=== PATIENT | female | born 1950 | race Caucasian/White ===

== ENCOUNTER 2017-11-29 09:24 | Inpatient (IN) | payer MEDICARE, OTHER ==
[~2017-11-29 09:24] MED LIST: EPHEDrine SULFATE 50 MG/5 ML SYG
[2017-11-29] MEDS ORDERED: ACETAMINOPHEN 325 MG TAB PO (11:30)
[2017-11-29] MEDS ORDERED: CEFAZOLIN 1 GM/50 ML (PMX) 50 ML IVPB (11:30)
[2017-11-29] MEDS ORDERED: BISACODYL 10 MG SUPP PR (11:30)
[2017-11-29] MEDS ORDERED: DIPHENHYDRAMINE 50 MG INJ IV ×2 (11:30→13:00)
[2017-11-29] MEDS ORDERED: AL HYDROX/MG HYDROX/SIMETH 30 ML CUP PO (11:30)
[2017-11-29] MEDS ORDERED: NALOXONE (0.4 MG/ML) INJ IV (11:30)
[2017-11-29] MEDS ORDERED: GELATIN SIZE 100 SPONGE (11:48)
[2017-11-29] MEDS ORDERED: ONDANSETRON 4 MG INJ (12:08)
[2017-11-29] MEDS ORDERED: METOCLOPRAMIDE 10 MG INJ (12:08)
[2017-11-29] MEDS ORDERED: ROCURONIUM 50 MG INJ ×2 (12:08→13:08)
[2017-11-29] MEDS ORDERED: PROPOFOL 20 ML (12:08)
[2017-11-29] MEDS ORDERED: MIDAZOLAM 1 MG/ML 2 ML INJ (12:08)
[2017-11-29] MEDS ORDERED: CEFAZOLIN 1 GM INJ (12:52)
[2017-11-29] MEDS ORDERED: ACETAMINOPHEN 1000MG/100ML IV 100 ML (12:52)
[2017-11-29] MEDS ORDERED: HYDROmorphONE (0.2 MG/ML) 10ML SYG IV ×3 (13:00)
[2017-11-29] MEDS ORDERED: MEPERIDINE 25 MG INJ IV (13:00)
[2017-11-29] MEDS ORDERED: HYDROmorphONE 2 MG/ML SYG (13:03)
[2017-11-29] MEDS ORDERED: THROMBIN 5000 UNIT VIAL (13:14)
[2017-11-29] MEDS: BUPIVACAINE 0.5%/EPI (SDV) 30 ML INJ (14:14)
[2017-11-29] MEDS: CA CHLORIDE 10% 10 ML SYRINGE (14:15)
[2017-11-29] MEDS: CEFAZOLIN 1 GM INJ (14:15)
[2017-11-29] MEDS: HEPARIN 1000 UNITS/ML 10 ML INJ (14:16)
[2017-11-29] MEDS: SURGIFOAM POWDER 1 GM KIT ×2 (14:16)
[2017-11-29] MEDS: THROMBIN 5000 UNIT VIAL (14:17)
[2017-11-29] MEDS: BUPIVACAINE 0.25% (MPF) 30 ML INJ (16:30)
[2017-11-29] MEDS: FENTAnyl 50 MCG/ML VIAL (16:31)
[2017-11-29] MEDS: HYDROmorphONE 0.2 MG/ML PCA IV (17:00)
[2017-11-29] MEDS: ONDANSETRON 4 MG INJ IV ×2 (17:24→20:26)
[2017-11-29] MEDS: CEPASTAT LOZENGE MT (18:27)
[2017-11-29] MEDS: CEFAZOLIN 1 GM/50 ML (PMX) 50 ML IVPB (18:27)
[2017-11-29] MEDS: D5W-0.45 NACL + KCL 20 MEQ 1,000 ML IV ×2 (18:27→19:54)
[2017-11-29] MEDS: ATORVASTATIN 10 MG TAB PO (20:13)
[2017-11-29] MEDS: DOCUSATE SODIUM 100 MG CAP PO (20:13)
[2017-11-29] MEDS: HYDROmorphONE 0.5 MG/0.5 ML SYG IV (23:39)
[2017-11-29] MEDS: CYCLOBENZAPRINE 10 MG TAB PO (23:51)
[2017-11-30] MEDS: ONDANSETRON 4 MG INJ IV (02:25)
[2017-11-30] MEDS: CEFAZOLIN 1 GM/50 ML (PMX) 50 ML IVPB ×2 (02:25→10:06)
[2017-11-30] MEDS: D5W-0.45 NACL + KCL 20 MEQ 1,000 ML IV ×2 (04:57→18:45)
[2017-11-30] MEDS: HYDROmorphONE 0.2 MG/ML PCA IV ×2 (05:01→16:30)
[2017-11-30] MEDS: PANTOPRAZOLE (EC) 40 MG TAB PO (05:03)
[2017-11-30 05:06] LABS: ADD MAN DIFF? NO
[2017-11-30 05:14] LABS: BASOPHILS % 0.2 % (0.0-2.0); EOSINOPHILS # 0.1 10^3/ul (0.0-0.5); EOSINOPHILS % 0.6 % (0.0-7.0); HEMOGLOBIN 9.6 g/dl (12.0-16.0); LYMPHOCYTES # 1.4 10^3/ul (0.8-2.9); LYMPHOCYTES % 14.2 % (15.0-51.0); MEAN CORPUSCULAR HEMOGLOBIN 28.1 pg (29.0-33.0); MEAN CORPUSCULAR VOLUME 87.7 fl (82.0-101.0); MEAN PLATELET VOLUME 9.6 fl (7.4-10.4); MONOCYTE # 1.1 10^3/ul (0.3-0.9); MONOCYTES % 10.8 % (0.0-11.0); NEUTROPHIL # 7.4 10^3/ul (1.6-7.5); NEUTROPHILS % 73.9 % (39.0-77.0); PLATELET COUNT 334 10^3/UL (140-415); RED BLOOD COUNT 3.42 10^6/ul (4.20-5.40); RED CELL DISTRIBUTION WIDTH 12.4 % (11.5-14.5)
[2017-11-30 05:14] LABS: WHITE BLOOD COUNT 9.9 10^3/ul (4.8-10.8)
[2017-11-30 05:26] LABS: ANION GAP 8 (8-16); BLOOD UREA NITROGEN 7 mg/dl (7-20); CALCIUM 8.7 mg/dl (8.4-10.2); CARBON DIOXIDE 29 mmol/L (21-31); CHLORIDE 104 mmol/L (97-110); CREATININE 0.56 mg/dl (0.44-1.00); GLUCOSE 157 mg/dl (70-220); MAGNESIUM 1.6 mg/dl (1.7-2.5); POTASSIUM 4.5 mmol/L (3.5-5.1); SODIUM 136 mmol/L (135-144)
[2017-11-30] MEDS ORDERED: PANTOPRAZOLE 40 MG INJ IV (06:00)
[2017-11-30] MEDS: DOCUSATE SODIUM 100 MG CAP PO ×2 (08:30→21:11)
[2017-11-30] MEDS: ESTRADIOL 1 MG TAB PO (08:30)
[2017-11-30] MEDS: MAGNESIUM SULFATE 2 GM/50 ML 50 ML IVPB (10:44)
[2017-11-30] MEDS: ATORVASTATIN 10 MG TAB PO (21:11)
[2017-11-30] MEDS: CYCLOBENZAPRINE 10 MG TAB PO (21:27)
[2017-12-01] MEDS: D5W-0.45 NACL + KCL 20 MEQ 1,000 ML IV ×4 (03:28→23:28)
[2017-12-01] MEDS: PANTOPRAZOLE (EC) 40 MG TAB PO (05:24)
[2017-12-01] MEDS: CEPASTAT LOZENGE MT (05:24)
[2017-12-01 05:55] LABS: ADD MAN DIFF? NO
[2017-12-01 06:09] LABS: BASOPHILS % 0.2 % (0.0-2.0); EOSINOPHILS % 0.4 % (0.0-7.0); HEMATOCRIT 29.7 % (37.0-47.0); HEMOGLOBIN 9.4 g/dl (12.0-16.0); LYMPHOCYTES % 9.7 % (15.0-51.0); MEAN CORPUSCULAR HEMOGLOBIN 27.7 pg (29.0-33.0); MEAN CORPUSCULAR HGB CONC 31.6 g/dl (32.0-37.0); MEAN CORPUSCULAR VOLUME 87.6 fl (82.0-101.0); MEAN PLATELET VOLUME 10.2 fl (7.4-10.4); MONOCYTE # 0.9 10^3/ul (0.3-0.9); MONOCYTES % 9.2 % (0.0-11.0); NEUTROPHIL # 8.1 10^3/ul (1.6-7.5); NEUTROPHILS % 80.2 % (39.0-77.0); PLATELET COUNT 335 10^3/UL (140-415); RED BLOOD COUNT 3.39 10^6/ul (4.20-5.40); RED CELL DISTRIBUTION WIDTH 12.4 % (11.5-14.5)
[2017-12-01 06:09] LABS: WHITE BLOOD COUNT 10.1 10^3/ul (4.8-10.8)
[2017-12-01 06:37] LABS: ANION GAP 12 (8-16); BLOOD UREA NITROGEN 5 mg/dl (7-20); CALCIUM 8.3 mg/dl (8.4-10.2); CARBON DIOXIDE 25 mmol/L (21-31); CHLORIDE 104 mmol/L (97-110); CREATININE 0.47 mg/dl (0.44-1.00); GLUCOSE 169 mg/dl (70-220); SODIUM 137 mmol/L (135-144)
[2017-12-01] MEDS: DOCUSATE SODIUM 100 MG CAP PO ×2 (09:27→20:58)
[2017-12-01] MEDS: OXYCODONE/ACETAMINOPHEN (10/325) TAB PO ×4 (09:28→22:18)
[2017-12-01] MEDS: ESTRADIOL 1 MG TAB PO (09:57)
[2017-12-01] MEDS ORDERED: PENDING SANTYL ORDER FOR WOUND CARE XX (17:30)
[2017-12-01] MEDS: CYCLOBENZAPRINE 10 MG TAB PO (18:08)
[2017-12-01] MEDS: ATORVASTATIN 10 MG TAB PO (20:58)
[2017-12-02] MEDS: OXYCODONE/ACETAMINOPHEN (10/325) TAB PO (04:23)
[2017-12-02 05:23] LABS: ADD MAN DIFF? NO
[2017-12-02 05:27] LABS: BASOPHILS % 0.3 % (0.0-2.0); EOSINOPHILS # 0.2 10^3/ul (0.0-0.5); EOSINOPHILS % 1.7 % (0.0-7.0); HEMATOCRIT 31.6 % (37.0-47.0); HEMOGLOBIN 9.7 g/dl (12.0-16.0); LYMPHOCYTES # 1.8 10^3/ul (0.8-2.9); LYMPHOCYTES % 19.2 % (15.0-51.0); MEAN CORPUSCULAR HEMOGLOBIN 27.4 pg (29.0-33.0); MEAN CORPUSCULAR HGB CONC 30.7 g/dl (32.0-37.0); MEAN CORPUSCULAR VOLUME 89.3 fl (82.0-101.0); MEAN PLATELET VOLUME 9.9 fl (7.4-10.4); MONOCYTE # 0.9 10^3/ul (0.3-0.9); MONOCYTES % 9.3 % (0.0-11.0); NEUTROPHIL # 6.4 10^3/ul (1.6-7.5); NEUTROPHILS % 69.2 % (39.0-77.0); PLATELET COUNT 357 10^3/UL (140-415); RED BLOOD COUNT 3.54 10^6/ul (4.20-5.40); RED CELL DISTRIBUTION WIDTH 12.2 % (11.5-14.5)
[2017-12-02 05:27] LABS: WHITE BLOOD COUNT 9.2 10^3/ul (4.8-10.8)
[2017-12-02 05:49] LABS: ANION GAP 13 (8-16); BLOOD UREA NITROGEN 7 mg/dl (7-20); CALCIUM 8.8 mg/dl (8.4-10.2); CARBON DIOXIDE 28 mmol/L (21-31); CHLORIDE 105 mmol/L (97-110); CREATININE 0.59 mg/dl (0.44-1.00); GLUCOSE 124 mg/dl (70-220); MAGNESIUM 1.9 mg/dl (1.7-2.5); POTASSIUM 3.9 mmol/L (3.5-5.1); SODIUM 142 mmol/L (135-144)
[2017-12-02] MEDS: PANTOPRAZOLE (EC) 40 MG TAB PO (06:22)
[2017-12-02] MEDS: CYCLOBENZAPRINE 10 MG TAB PO (06:29)
[2017-12-02] MEDS: ESTRADIOL 1 MG TAB PO (08:58)
[2017-12-02] MEDS: OXYCODONE/ACETAMINOPHEN (5/325) TAB PO ×2 (08:59→12:58)
[2017-12-02] MEDS: DOCUSATE SODIUM 100 MG CAP PO (08:59)
[2017-12-02] MEDS: D5W-0.45 NACL + KCL 20 MEQ 1,000 ML IV (09:28)
== END 2017-12-02 14:47 | disposition home or self-care (01) | DRG 455 ==
LOC: REC 09:24 → MS1 17:35
PROC: 0SG00AJ Fusion of Lumbar Vertebral Joint with Interbody Fusion Device, Posterior Approach, Anterior Column, Open Approach (ICD-10-PCS; principal; 2017-11-29 12:00)
PROC: 0SG0071 Fusion of Lumbar Vertebral Joint with Autologous Tissue Substitute, Posterior Approach, Posterior Column, Open Approach (ICD-10-PCS; 2017-11-29 12:00)
PROC: 07DR3ZZ Extraction of Iliac Bone Marrow, Percutaneous Approach (ICD-10-PCS; 2017-11-29 12:00)
DX: M43.16 Spondylolisthesis, lumbar region (principal); M48.061 Spinal stenosis, lumbar region without neurogenic claudication; M54.17 Radiculopathy, lumbosacral region; Z78.0 Asymptomatic menopausal state; E78.5 Hyperlipidemia, unspecified; G47.00 Insomnia, unspecified; F41.9 Anxiety disorder, unspecified; M79.605 Pain in left leg; E83.42 Hypomagnesemia; Z88.2 Allergy status to sulfonamides; Z96.641 Presence of right artificial hip joint; Z98.84 Bariatric surgery status; Z90.710 Acquired absence of both cervix and uterus
CPT/HCPCS: 72114; 72131; 80048; 83735; 85025; 86850; 86900; 86901; 86999; 87086; 88304; 97110; 97116; 97163; 97530